=== PATIENT | male | born 1940 | race African-American/Black ===

== ENCOUNTER 2023-10-16 18:51 | Emergency (ER) | payer MEDICARE ==
[~2023-10-16] VITALS: Ht 177.8 cm; Wt 90.7 kg
[2023-10-16 19:28] VITALS: BP 107/60; PULSE 60; RESP 14; TEMP 98.2; O2SAT 96
[2023-10-16 19:44] LABS: BASOPHILS % (AUTO) 0.4 % (0.0-2.0); EOSINOPHILS % (AUTO) 0.1 % (0.0-4.0); HEMATOCRIT 35.5 % (36-52); HEMOGLOBIN 11.4 g/dL (12.0-18.0); LYMPHOCYTES # (AUTO) 0.9 K/uL (2.0-11.5); MEAN CORPUSCULAR HEMOGLOBIN 29 pg (27-31); MEAN CORPUSCULAR HGB CONC 32 g/dL (33-37); MEAN CORPUSCULAR VOLUME 89.2 fL (80-94); MONOCYTES # (AUTO) 0.5 K/uL (0.8-1.0); MONOCYTES % (AUTO) 16.2 % (1.7-9.3); NEUTROPHILS # (AUTO) 1.8 K/uL (1.8-7.7); NEUTROPHILS % (AUTO) 55.3 % (42.2-75.2); PLATELET COUNT (AUTO) 83 K/uL (140-450); RED BLOOD CELL COUNT(AUTO) 3.98 MIL/uL (4.20-6.10); RED CELL DISTRIBUTION WIDTH 19.5 % (11.6-13.7); WHITE BLOOD COUNT (AUTO) 3.3 K/uL (4.8-10.8)
[2023-10-16 20:10] LABS: ALANINE AMINOTRANSFERASE 19 U/L (12-78); ALBUMIN 2.6 g/dL (3.4-5.0); ALKALINE PHOSPHATASE 242 U/L (50-136); ASPARTATE AMINOTRANSFERASE 27 U/L (15-37); CALCIUM 8.9 mg/dL (8.5-10.1); CHLORIDE 101 mmol/L (98-107); CREATININE 1.3 mg/dL (0.6-1.3); GLUCOSE 121 mg/dL (74-106); LIPASE 42 U/L (16-77); SODIUM SERUM 137 mmol/L (136-145); TOTAL PROTEIN, SERUM 7.3 g/dL (6.4-8.2); UREA NITROGEN, BLOOD 33 mg/dL (7-18)
[2023-10-16 20:28] LABS: APPEARANCE,URINE CLEAR (CLEAR); BILIRUBIN,URINE NEGATIVE (NEGATIVE); BLOOD, URINE NEGATIVE (NEGATIVE); COLOR,URINE YELLOW (YELLOW); LEUKOCYTE ESTERASE ,URINE NEGATIVE (NEGATIVE); NITRITE, URINE NEGATIVE (NEGATIVE); PH,URINE 5.5 (5.0-9.0); PROTEIN,URINE 1+ (NEGATIVE); UGLUCOSE NEGATIVE (NEGATIVE)
[2023-10-16 20:45] LABS: INR 2.41 (0.8-1.2)
[2023-10-16] MEDS ORDERED: levETIRAcetam 100 MG/ML VIAL IV ONE (21:10)
[2023-10-16] MEDS: levETIRAcetam 1,000 MG in NACL 0.9% 100 ML IV ONE (21:18)
[2023-10-16] MEDS: MEDICATION REC. PHARMACY CONS. 1 EA MISC MC STA (21:28)
[2023-10-16] MEDS: ED NON STOCK ORDER 1 EA MISC IV STA (21:28)
[2023-10-17 00:03] VITALS: BP 111/52; PULSE 51; RESP 17; TEMP 97.8; O2SAT 100
== END 2023-10-17 00:02 | disposition short-term general hospital (02) ==
LOC: MED 18:51
DX: I62.00 Nontraumatic subdural hemorrhage, unspecified (principal); R14.0 Abdominal distension (gaseous); M62.562 Muscle wasting and atrophy, not elsewhere classified, left lower leg; M62.561 Muscle wasting and atrophy, not elsewhere classified, right lower leg; R41.82 Altered mental status, unspecified; I11.0 Hypertensive heart disease with heart failure; I50.9 Heart failure, unspecified; Z88.8 Allergy status to other drugs, medicaments and biological substances; Z91.040 Latex allergy status
CPT/HCPCS: 36415; 70450; 71045; 80053; 81003; 82140; 83690; 84484; 85025; 85610; 87040; 93005; 96365; 99291; 99292; J1953; Q0092